=== PATIENT | male | born 1995 | race Caucasian/White ===

== ENCOUNTER 2018-07-29 07:46 | Day surgery (SDC) | payer OTHER ==
[~2018-07-29] VITALS: Ht 170.2 cm; Wt 72.7 kg
[2018-07-29 08:17] VITALS: BP 120/80; PULSE 91; TEMP 97.9
[2018-07-29] MEDS ORDERED: AMITRIPTYLINE H50 M1 PO (08:26)
[2018-07-29] MEDS ORDERED: PRINIVIL10 MG PO (08:27)
[2018-07-29] MEDS ORDERED: NEURONTIN800 MG/TAB PO (08:28)
[2018-07-29] MEDS ORDERED: MOTRIN 800800 MG/TAB PO (08:28)
--- NOTE | 2018-07-29 08:29 | NUR ---
TO RM AT 0755- CALL LIGHT IN REACH FRIEND IN WAITING RM
[2018-07-29 10:15] VITALS: BP 116/85; PULSE 102; TEMP 98.6
[2018-07-29 10:30] VITALS: BP 111/87; PULSE 95
[2018-07-29 10:45] VITALS: BP 107/79; PULSE 94
--- NOTE | 2018-07-29 11:00 | NUR ---
Pt returned via cart to bay 7 at 1015. Ambulated with SBA to recliner in bay. Pt drowsy. VSS-see flowsheet. Tolerated coca cola and muffin. Dr Hernandez spoke with pt post procedure. IV removed and pressure dressing applied to right wrist site. Discharge teaching completed, pt verbalized understanding. Taken via wheelchair by staff to private vehicle with friend, Nazario, to drive pt home.
== END 2018-07-29 11:00 | disposition home or self-care (01) ==
LOC: SDCO 07:46
DX: R11.2 Nausea with vomiting, unspecified (principal); R19.7 Diarrhea, unspecified
CPT/HCPCS: OP; J2250; J2405; J3010; J7030

== ENCOUNTER 2020-08-24 12:55 | Emergency (ER) | payer OTHER ==
[~2020-08-24] VITALS: Ht 170.2 cm; Wt 72.7 kg
[~2020-08-24 12:55] MED LIST: AMITRIPTYLINE H50 M1 PO; MOTRIN 800800 MG/TAB PO; NEURONTIN800 MG/TAB PO; PRINIVIL10 MG PO
[2020-08-24 13:17] VITALS: BP 131/88; TEMP 98
[2020-08-24] MEDS ORDERED: PREDNISONE10 MG PO (13:59)
[2020-08-24] MEDS ORDERED: PERCOCET 325 MG1 TA2 PO (13:59)
[2020-08-24 14:10] VITALS: PULSE 88
== END 2020-08-24 14:10 | disposition home or self-care (01) ==
LOC: COL.ER 12:55
DX: M25.512 Pain in left shoulder (principal); G89.29 Other chronic pain; X50.0XXA Overexertion from strenuous movement or load, initial encounter; Y93.F2 Activity, caregiving, lifting; Y92.69 Other specified industrial and construction area as the place of occurrence of the external cause; Y99.0 Civilian activity done for income or pay

== ENCOUNTER 2021-04-08 16:19 | Emergency (ER) | payer OTHER ==
[~2021-04-08] VITALS: Ht 170.2 cm; Wt 72.7 kg
[~2021-04-08 16:19] MED LIST changes: +PERCOCET 325 MG1 TA2 PO; +PREDNISONE10 MG PO
[2021-04-08 16:25] VITALS: TEMP 102.7
[2021-04-08 17:57] LABS: STREP SCREEN POSITIVE
[2021-04-08] MEDS ORDERED: AMOXICILLIN 50500 MG PO (18:59)
[2021-04-08 19:27] VITALS: BP 139/76; PULSE 84
== END 2021-04-08 19:08 | disposition home or self-care (01) ==
LOC: COL.ER 16:19
PROVIDERS: Nurse Practitioner
DX: J02.9 Acute pharyngitis, unspecified (principal); I10 Essential (primary) hypertension; F17.290 Nicotine dependence, other tobacco product, uncomplicated; Z20.822 Contact with and (suspected) exposure to COVID-19; Z79.899 Other long term (current) drug therapy

== ENCOUNTER 2021-09-05 21:03 | Emergency (ER) | payer OTHER ==
[~2021-09-05] VITALS: Ht 170.2 cm; Wt 72.7 kg
[~2021-09-05 21:03] MED LIST changes: +AMOXICILLIN 50500 MG PO
[2021-09-05 21:18] VITALS: BP 128/89; TEMP 98.4
[2021-09-06] MEDS ORDERED: FLEXERIL 1010 MG/TAB PO (01:10)
[2021-09-06 01:42] VITALS: PULSE 84
== END 2021-09-06 01:42 | disposition home or self-care (01) ==
LOC: COL.ER 21:03
DX: M54.50 Low back pain, unspecified (principal); M54.10 Radiculopathy, site unspecified; Z28.311 Partially vaccinated for COVID-19
CPT/HCPCS: J1885